=== PATIENT | female | born 1975 | race Caucasian/White ===

== ENCOUNTER 2016-12-14 02:50 | Emergency (ER) | payer OTHER ==
[2016-12-14 03:32] VITALS: BP 123/63
[2016-12-14 03:55] LABS: CHLORIDE,CL 105 mEq/L (98-106); SODIUM,NA 141 mEq/L (136-145)
[2016-12-14] MEDS ORDERED: Take Home: Acetaminophen/HYDROcodone 325-5 MG, 2 Tab Pack PO ONE (04:00)
[2016-12-14] MEDS ORDERED: Acetaminophen/HYDROcodone 325-5 MG Tab PO ONE ×2 (04:00→11:11)
--- NOTE | 2016-12-14 04:07 | EDM.PDOC ---
ED HPI GENERAL MEDICAL PROBLEM - General Chief Complaint: General Stated Complaint: abd pain Time Seen by Provider: 12/14/16 03:10 Source of Information: Reports: Patient - History of Present Illness INITIAL COMMENTS - FREE TEXT/NARRATIVE: Started having right upper abdominal pain radiating to her back a couple of hours ago. Onset: Sudden Duration: Hour(s): Location: Reports: Abdomen Improves with: Reports: None Worsens with: Reports: None Right Upper Abdomen Pain Score (Numeric/FACES): 4 - Related Data Allergies Allergy/AdvReac Type Severity Reaction Status Date / Time aluminum hydroxide Allergy Cannot Verified 12/14/16 03:01 [From Mylanta] Remember aspirin Allergy Cannot Verified 12/14/16 03:01 Remember calcium carbonate Allergy Cannot Verified 12/14/16 03:01 [From Mylanta] Remember magnesium [From Mylanta] Allergy Cannot Verified 12/14/16 03:01 Remember magnesium hydroxide Allergy Cannot Verified 12/14/16 03:01 [From Mylanta] Remember Penicillins Allergy Cannot Verified 12/14/16 03:01 Remember simethicone [From Mylanta] Allergy Cannot Verified 12/14/16 03:01 Remember Home Meds: Home Meds . [No Known Home Meds] 12/14/16 [History] Past Medical History Respiratory History: Reports: Asthma Neurological History: Reports: Head Trauma - Past Surgical History HEENT Surgical History: Reports: Other (See Below) Other HEENT Surgeries/Procedures: CORRECTIVE EYE SURGERY GI Surgical History: Reports: Appendectomy Social & Family History - Family History Family Medical History: Noncontributory - Tobacco Use Smoking Status *Q: Never Smoker Second Hand Smoke Exposure: No ED ROS GENERAL - Review of Systems Review Of Systems: ROS reveals no pertinent complaints other than HPI. ED EXAM, GENERAL - Physical Exam Exam: See Below Exam Limited By: No Limitations General Appearance: Alert, WD/WN Ears: Normal External Exam Nose: Normal Inspection Throat/Mouth: Normal Inspection Head: Atraumatic Neck: Normal Inspection Respiratory/Chest: No Respiratory Distress Cardiovascular: Normal Peripheral Pulses GI/Abdominal: Soft, No Distention, Tender Back Exam: Normal Inspection Extremities: Normal Inspection Neurological: Alert, Oriented Psychiatric: Normal Affect Skin Exam: Warm, Dry Course - Vital Signs Last Recorded V/S: Last Vital Signs Temp 99 F 12/14/16 03:27 Pulse 84 12/14/16 03:27 Resp 18 12/14/16 03:27 BP 123/63 12/14/16 03:27 Pulse Ox 98 12/14/16 03:27 - Orders/Labs/Meds Orders: Active Orders 24 hr Category Date Time Status LIPASE [REF] Stat Lab 12/14/16 03:25 Received Labs: Laboratory Tests 12/14/16 12/14/16 Range/Units 03:25 03:25 WBC 9.9 (5.0-10.0) 10^3/uL RBC 4.21 (4.00-5.50) 10^6/uL Hgb 11.8 L (12.0-16.0) g/dL Hct 35.6 L (37.0-47.0) % MCV 84.6 (82.0-94.0) fL MCH 28.0 (27.0-32.0) pg MCHC 33.1 (33.0-38.0) g/dL RDW Coeff of Renae 13.9 (11.0-15.0) % Plt Count 292 (150-400) 10^3/uL Neut % (Auto) 60.0 (35-85) % Lymph % (Auto) 28.1 (10-55) % [place] % (Auto) 10.8 (0-16) % Eos % (Auto) 0.6 (0-5) % Baso % (Auto) 0.5 (0-3) % Neut # (Auto) 5.95 (1.80-7.00) 10^3/uL Lymph # (Auto) 2.78 (1.00-4.80) 10^3/uL [place] # (Auto) 1.07 H (0.00-0.80) 10^3/uL Eos # (Auto) 0.06 (0.00-0.45) 10^3/uL Baso # (Auto) 0.05 10^3/uL Sodium 141 (136-145) mEq/L Potassium 3.2 L (3.5-5.0) mEq/L Chloride 105 (98-106) mEq/L Carbon Dioxide 27 (21-32) mmol/L BUN 7 (7-18) mg/dL Creatinine 0.9 (0.6-1.0) mg/dL Est Cr Clr Drug Dosing 64.40 mL/min Estimated GFR (MDRD) > 60 (>=60) mL/min Glucose 101 H (75-99) mg/dL Calcium 8.5 (8.4-10.1) mg/dL Total Bilirubin 0.5 (0.0-1.0) mg/dL AST 18 (15-37) U/L ALT 22 (12-78) U/L Alkaline Phosphatase 87 (46-116) U/L Total Protein 7.1 (6.4-8.2) g/dL Albumin 3.1 L (3.4-5.0) g/dL Amylase 36 (25-115) U/L Meds: Medications Discontinued Medications Generic Name Dose Route Start Last Admin Trade Name Freq PRN Reason Stop Dose Admin Hydrocodone Bitart/Acetaminophen 2 packet 12/14/16 04:00 12/14/16 04:07 Take Home: Acetaminophen/Hydrocod, 2 Tab Pack PO 12/14/16 04:01 2 packet ONETIME ONE Administration Hydrocodone Bitart/Acetaminophen 1 tab 12/14/16 04:00 12/14/16 04:07 [place] 325-5 Mg PO 12/14/16 04:01 1 tab ONETIME ONE Administration Departure - Departure Time of Disposition: 04:04 (Lab work is unremarkable. will schedule US of abdomin RUQ to rule out gallbladder disease.) Disposition: Home, Self-Care 01 Condition: Good Clinical Impression: Abdominal pain - Discharge Information Referrals: Provider,Unknown [Primary Care Provider] - Forms: ED Department Discharge Additional Instructions: Take pain medications every 4 hours as needed for pain. Make sure you follow up to have your ultrasound. - My Orders Last 24 Hours: My Active Orders 12/14/16 03:25 LIPASE [REF] Stat - Assessment/Plan Last 24 Hours: My Active Orders 12/14/16 03:25 LIPASE [REF] Stat
== END 2016-12-14 04:15 | disposition home or self-care (01) ==
LOC: CC.ED 02:50
DX: R10.11 Right upper quadrant pain (principal); J45.909 Unspecified asthma, uncomplicated; Z88.8 Allergy status to other drugs, medicaments and biological substances; Z88.0 Allergy status to penicillin; Z98.890 Other specified postprocedural states; Z90.49 Acquired absence of other specified parts of digestive tract
CPT/HCPCS: 36415; 80053; 82150; 83690; 85025; 99284; A9270

== ENCOUNTER 2019-01-10 19:46 | Emergency (ER) | payer MEDICAID, OTHER ==
[2019-01-10] MEDS ORDERED: Ondansetron 4 MG Tab.DIS PO ONE (19:47)
[2019-01-10 19:58] VITALS: BP 101/68; PULSE 65
[2019-01-10] MEDS ORDERED: Ondansetron 4 MG/2 ML SDV IVPUSH PRN (20:31)
--- NOTE | 2019-01-10 20:37 | EDM.PDOC ---
ED HPI GENERAL MEDICAL PROBLEM - General Chief Complaint: Abdominal Pain Stated Complaint: abd pain and vomiting Time Seen by Provider: 01/10/19 20:22 Source of Information: Reports: Patient History Limitations: Reports: No Limitations - History of Present Illness INITIAL COMMENTS - FREE TEXT/NARRATIVE: Patient presents to ER with complaints of nausea, vomiting and abdominal pain. States "feels like salmonella which she has had before". She was feeling good earlier this afternoon. Ate chicken strips, fries and brown gravy for supper around 1630. Started noting increased pain at around 5 and vomited x2 after that. Feels crampy. Did get her menstrual cycle today but has never had symptoms like this with her menses. She denies fever. No cough or shortness of breath. Does feel somewhat dizzy when up. Onset: Today, Sudden Duration: Hour(s):, Constant Location: Reports: Abdomen Quality: Reports: Ache Severity: Severe Improves with: Reports: None Associated Symptoms: Reports: Nausea/Vomiting. Denies: Confusion, Chest Pain, Cough, Fever/Chills, Loss of Appetite, Shortness of Breath Abdominal Pain Score (Numeric/FACES): 10 - Related Data Allergies Allergy/AdvReac Type Severity Reaction Status Date / Time aluminum hydroxide Allergy Cannot Verified 01/10/19 19:59 [From Mylanta] Remember aspirin Allergy Cannot Verified 01/10/19 19:59 Remember calcium carbonate Allergy Cannot Verified 01/10/19 19:59 [From Mylanta] Remember magnesium [From Mylanta] Allergy Cannot Verified 01/10/19 19:59 Remember magnesium hydroxide Allergy Cannot Verified 01/10/19 19:59 [From Mylanta] Remember Penicillins Allergy Cannot Verified 01/10/19 19:59 Remember simethicone [From Mylanta] Allergy Cannot Verified 01/10/19 19:59 Remember Home Meds: Home Meds Albuterol [Proventil HFA] 1 puff IH DAILY PRN 06/10/18 [History] Acetaminophen [Tylenol Extra Strength] 500 mg PO Q6HR PRN 01/10/19 [History] Multivit with Calcium,Iron,Min [One Daily Women's] 1 tab PO DAILY 01/10/19 [ History] Past Medical History HEENT History: Reports: Hard of Hearing, Impaired Vision, Other (See Below) Other HEENT History: left ear deaf Cardiovascular History: Reports: [place] Respiratory History: Reports: Asthma, Other (See Below) Other Respiratory History: hx of collapsed lung Gastrointestinal History: Reports: None Genitourinary History: Reports: STD [employer]EL [employer]W OPERATOR History: Reports: Polycystic Ovaries Musculoskeletal History: Reports: Fracture, Other (See Below) Other Musculoskeletal History: tendinitis Neurological History: Reports: Head Trauma Psychiatric History: Reports: Developmental Delay Endocrine/Metabolic History: Reports: None Hematologic History: Reports: None Immunologic History: Reports: None Oncologic (Cancer) History: Reports: None Dermatologic History: Reports: None - Infectious Disease History Infectious Disease History: Reports: None - Past Surgical History Head Surgeries/Procedures: Reports: None HEENT Surgical History: Reports: Other (See Below) Other HEENT Surgeries/Procedures: CORRECTIVE EYE SURGERY Respiratory Surgical History: Reports: None GI Surgical History: Reports: Appendectomy Female Surgical History: Reports: None Endocrine Surgical History: Reports: None Neurological Surgical History: Reports: None Musculoskeletal Surgical History: Reports: None Social & Family History - Family History Family Medical History: Noncontributory - Tobacco Use Smoking Status *Q: Former Smoker Used Tobacco, but Quit: Yes Month/Year Tobacco Last Used: 25yrs - Caffeine Use Caffeine Use: Reports: Soda, Tea - Recreational Drug Use Recreational Drug Use: No ED ROS GENERAL - Review of Systems Review Of Systems: See Below Constitutional: Denies: Fever, Chills, Malaise, Weakness, Fatigue, Decreased Appetite HEENT: Reports: No Symptoms Respiratory: Denies: Shortness of Breath, Cough Cardiovascular: Denies: Chest Pain, Edema, Lightheadedness Endocrine: Denies: Fatigue GI/Abdominal: Reports: Abdominal Pain, Nausea, Vomiting. Denies: Constipation, Diarrhea : Denies: Dysuria, Frequency, Irregular Menses Musculoskeletal: Reports: No Symptoms Skin: Reports: No Symptoms Neurological: Reports: No Symptoms ED EXAM, GI/ABD - Physical Exam Exam: See Below Exam Limited By: No Limitations General Appearance: Alert, WD/WN, No Apparent Distress Ears: Normal External Exam, Normal TMs Nose: Normal Inspection, Normal Mucosa, No Blood Throat/Mouth: Normal Inspection, Normal Oropharynx Head: Normocephalic Neck: Normal Inspection, Supple, Non-Tender Respiratory/Chest: No Respiratory Distress, Lungs Clear, Normal Breath Sounds Cardiovascular: Regular Rate, Rhythm GI/Abdominal Exam: Normal Bowel Sounds, Soft, Tender (tender diffusely throughout) Neurological: Alert, Oriented Skin Exam: Warm, Dry Course - Vital Signs Last Recorded V/S: Last Vital Signs Temp 97.6 F 01/10/19 19:55 Pulse 65 01/10/19 19:55 Resp 18 01/10/19 19:55 BP 101/68 01/10/19 19:55 Pulse Ox 98 01/10/19 19:55 - Orders/Labs/Meds Orders: Active Orders 24 hr Category Date Time Status Abdomen 2V AP Flat Upright [CR] Stat Exams 01/10/19 20:04 Taken Lactated Ringers [Ringers, Lactated] 1,000 ml Med 01/10/19 20:45 Active IV ASDIRECTED Ondansetron [Zofran] Med 01/10/19 20:31 Active 4 mg IVPUSH Q6H PRN Medication Orders Lactated Ringer's (Ringers, Lactated) 1,000 mls @ 250 mls/hr IV ASDIRECTED JANET Last Admin: 01/10/19 20:36 Dose: 250 mls/hr Ondansetron HCl (Zofran) 4 mg IVPUSH Q6H PRN PRN Reason: Nausea Last Admin: 01/10/19 20:39 Dose: 4 mg Labs: Laboratory Tests 01/10/19 01/10/19 01/10/19 Range/Units 20:04 20:25 20:25 WBC 8.3 (5.0-10.0) 10^3/uL RBC 4.50 (4.00-5.50) 10^6/uL Hgb 13.3 (12.0-16.0) g/dL Hct 39.8 (37.0-47.0) % MCV 88.4 (82.0-94.0) fL MCH 29.6 (27.0-32.0) pg MCHC 33.4 (33.0-38.0) g/dL RDW Coeff of Renae 13.1 (11.0-15.0) % Plt Count 291 (150-400) 10^3/uL Neut % (Auto) 64.3 (35-85) % Lymph % (Auto) 26.1 (10-55) % [place] % (Auto) 6.3 (0-16) % Eos % (Auto) 2.7 (0-5) % Baso % (Auto) 0.6 (0-3) % Neut # (Auto) 5.31 (1.80-7.00) 10^3/uL Lymph # (Auto) 2.15 (1.00-4.80) 10^3/uL [place] # (Auto) 0.52 (0.00-0.80) 10^3/uL Eos # (Auto) 0.22 (0.00-0.45) 10^3/uL Baso # (Auto) 0.05 10^3/uL Sodium 141 (136-145) mEq/L Potassium 3.6 (3.5-5.0) mEq/L Chloride 105 (98-106) mEq/L Carbon Dioxide 28 (21-32) mmol/L BUN 5 L (7-18) mg/dL Creatinine 0.9 (0.6-1.0) mg/dL Est Cr Clr Drug Dosing 63.09 mL/min Estimated GFR (MDRD) > 60 (>=60) mL/min Glucose 116 H (75-99) mg/dL Calcium 9.1 (8.4-10.1) mg/dL Total Bilirubin 0.3 (0.0-1.0) mg/dL AST 14 L (15-37) U/L ALT 17 (12-78) U/L Alkaline Phosphatase 71 (46-116) U/L C-Reactive Protein < 0.2 L (0.2-0.8) mg/dL Total Protein 7.1 (6.4-8.2) g/dL Albumin 3.5 (3.4-5.0) g/dL Lipase 118 (73-393) U/L Urine Color Yellow (YELLOW) Urine Appearance Clear (CLEAR) Urine pH >= 9.0 H (4.5-8.0) Ur Specific [place] 1.020 (1.003-1.020) Urine Protein Negative (NEGATIVE) mg/dL Urine Glucose (UA) Negative (NEGATIVE) mg/dL Urine Ketones Negative (NEGATIVE) mg/dL Urine Occult Blood Negative (NEGATIVE) Urine Nitrite Negative (NEGATIVE) Urine Bilirubin Negative (NEGATIVE) Urine Urobilinogen 0.2 (0.2-1.0) EU/dL Ur Leukocyte Esterase Trace H (NEGATIVE) Urine RBC Not seen (0-5) /HPF Urine WBC 5-10 H (0-5) /HPF Ur Squamous Epith Cells Occasional H (NOT SEEN) /HPF Urine Bacteria Occasional H (NOT SEEN) /HPF Urine Trichomonas Present H (NOT SEEN) /HPF Meds: Medications Generic Name Dose Route Start Last Admin Trade Name Freq PRN Reason Stop Dose Admin Lactated Ringer's 1,000 mls @ 250 mls/hr 01/10/19 20:45 01/10/19 20:36 Ringers, Lactated IV 250 mls/hr ASDIRECTED JANET Administration Ondansetron HCl 4 mg 01/10/19 20:31 01/10/19 20:39 Zofran IVPUSH 4 mg Q6H PRN Administration Nausea - Re-Assessments/Exams Free Text/Narrative Re-Assessment/Exam: 01/10/19 20:58 Labs reviewed with patient and mother. Essentially negative except trichomonas noted in urine. Will discharge with Rx for Flagyl. Zofran for nausea. Departure - Departure Time of Disposition: 21:03 Disposition: Home, Self-Care 01 Condition: Good Clinical Impression: Abdominal pain, Trichomoniasis - Discharge Information *PRESCRIPTION DRUG MONITORING PROGRAM REVIEWED*: No *COPY OF PRESCRIPTION DRUG MONITORING REPORT IN PATIENT DENISSE: No Referrals: Nishant Goel MD [Primary Care Provider] - Forms: ED Department Discharge Additional Instructions: 1. Push fluids 2. [place] diet 3. Rest 4. Zofran 4 mg every 6 hours as needed for nausea 5. Flagyl 500 every 12 hours for 7 days 6. Follow up with Dr. Goel if abdominal pain worsens or develop new concerns. - My Orders Last 24 Hours: My Active Orders 01/10/19 20:04 Abdomen 2V AP Flat Upright [CR] Stat 01/10/19 20:31 Ondansetron [Zofran] 4 mg IVPUSH Q6H PRN 01/10/19 20:45 Lactated Ringers [Ringers, Lactated] 1,000 ml IV ASDIRECTED - Assessment/Plan Last 24 Hours: My Active Orders 01/10/19 20:04 Abdomen 2V AP Flat Upright [CR] Stat 01/10/19 20:31 Ondansetron [Zofran] 4 mg IVPUSH Q6H PRN 01/10/19 20:45 Lactated Ringers [Ringers, Lactated] 1,000 ml IV ASDIRECTED
[2019-01-10] MEDS ORDERED: Lactated Ringers 1,000 ML IV SCH ×2 (20:45→21:36)
[2019-01-10 20:47] LABS: CHLORIDE,CL 105 mEq/L (98-106); SODIUM,NA 141 mEq/L (136-145)
[2019-01-10] MEDS ORDERED: Take Home: Ondansetron 4 MG Tab.DIS, 2 Tab Pack PO ONE (20:59)
== END 2019-01-10 21:37 | disposition home or self-care (01) ==
LOC: CC.ED 19:46
DX: R10.9 Unspecified abdominal pain (principal); A59.9 Trichomoniasis, unspecified; R11.2 Nausea with vomiting, unspecified; I25.2 Old myocardial infarction; Z79.899 Other long term (current) drug therapy; Z88.6 Allergy status to analgesic agent; Z88.0 Allergy status to penicillin; Z88.8 Allergy status to other drugs, medicaments and biological substances; Z87.891 Personal history of nicotine dependence
CPT/HCPCS: 36415; 74019; 80053; 81001; 83690; 85025; 86140; 96361; 96374; 99284; A9270; J2405; J7120

== ENCOUNTER 2020-02-04 23:14 | Emergency (ER) | payer MEDICAID ==
[2020-02-04 23:36] VITALS: BP 101/67; PULSE 72
--- NOTE | 2020-02-04 23:47 | EDM.PDOC ---
ED HPI GENERAL MEDICAL PROBLEM - General Chief Complaint: General Stated Complaint: FALL Time Seen by Provider: 02/04/20 23:45 Source of Information: Reports: Patient History Limitations: Reports: No Limitations - History of Present Illness INITIAL COMMENTS - FREE TEXT/NARRATIVE: Maggie is a 44 yo female who presents to the ED following a fall in her home. She reports she was in an argument with her mother. Reports she was trying to "take 5" then she got up from the chair quickly. Reports the chair had wheels so it spun and she fell to the ground and the chair then landed on her. She reports pain to her left middle finger, her neck, her right chest, and her right foot. ROM and strength intact throughout. Bruising and swelling to left middle finger. She called 911 and was brought in by EMS. She appears in no acute distress. C collar intact upon arrival. Onset: Today, Sudden Location: Reports: Generalized Quality: Reports: Ache Improves with: Reports: None Worsens with: Reports: None Associated Symptoms: Reports: No Other Symptoms. Denies: Confusion, Chest Pain, Headaches, Nausea/Vomiting, Shortness of Breath, Syncope, Weakness - Related Data Allergies Allergy/AdvReac Type Severity Reaction Status Date / Time aluminum hydroxide Allergy Cannot Verified 02/04/20 23:21 [From Mylanta] Remember aspirin Allergy Cannot Verified 02/04/20 23:21 Remember calcium carbonate Allergy Cannot Verified 02/04/20 23:21 [From Mylanta] Remember magnesium [From Mylanta] Allergy Cannot Verified 02/04/20 23:21 Remember magnesium hydroxide Allergy Cannot Verified 02/04/20 23:21 [From Mylanta] Remember Penicillins Allergy Cannot Verified 02/04/20 23:21 Remember simethicone [From Mylanta] Allergy Cannot Verified 02/04/20 23:21 Remember Home Meds: Home Meds Albuterol [Proventil HFA] 1 puff IH DAILY PRN 06/10/18 [History] Acetaminophen [Tylenol Extra Strength] 500 mg PO Q6HR PRN 01/10/19 [History] Multivit with Calcium,Iron,Min [One Daily Women's] 1 tab PO DAILY 01/10/19 [History] Past Medical History HEENT History: Reports: Hard of Hearing, Impaired Vision, Other (See Below) Other HEENT History: left ear deaf Cardiovascular History: Reports: [place] Respiratory History: Reports: Asthma, Other (See Below) Other Respiratory History: hx of collapsed lung Gastrointestinal History: Reports: None Genitourinary History: Reports: STD ED PHYSICIANS History: Reports: Polycystic Ovaries Musculoskeletal History: Reports: Fracture, Other (See Below) Other Musculoskeletal History: tendinitis Neurological History: Reports: Head Trauma Psychiatric History: Reports: Developmental Delay Endocrine/Metabolic History: Reports: None Hematologic History: Reports: None Immunologic History: Reports: None Oncologic (Cancer) History: Reports: None Dermatologic History: Reports: None - Infectious Disease History Infectious Disease History: Reports: None - Past Surgical History Head Surgeries/Procedures: Reports: None HEENT Surgical History: Reports: Other (See Below) Other HEENT Surgeries/Procedures: CORRECTIVE EYE SURGERY Respiratory Surgical History: Reports: None GI Surgical History: Reports: Appendectomy Female Surgical History: Reports: None Endocrine Surgical History: Reports: None Neurological Surgical History: Reports: None Musculoskeletal Surgical History: Reports: None Social & Family History - Family History Family Medical History: Noncontributory - Tobacco Use Smoking Status *Q: Never Smoker Second Hand Smoke Exposure: No - Caffeine Use Caffeine Use: Reports: None ED ROS GENERAL - Review of Systems Review Of Systems: Comprehensive ROS is negative, except as noted in HPI. ED EXAM, GENERAL - Physical Exam Exam: See Below Exam Limited By: No Limitations General Appearance: Alert, WD/WN, No Apparent Distress Eye Exam: Bilateral Eye: EOMI, Normal Fundi, Normal Inspection, PERRL Ears: Normal External Exam, Normal Canal, Hearing Grossly Normal, Normal TMs Nose: Normal Inspection, Normal Mucosa, No Blood Throat/Mouth: Normal Inspection, Normal Lips, Normal Teeth, Normal Gums, Normal Oropharynx, Normal Voice, No Airway Compromise Head: Atraumatic, Normocephalic Neck: Normal Inspection, Supple, Non-Tender, Full Range of Motion. No: Tender Lateral, Tender Midline Respiratory/Chest: No Respiratory Distress, Lungs Clear, Normal Breath Sounds, No Accessory Muscle Use, Chest Non-Tender Cardiovascular: Normal Peripheral Pulses, Regular Rate, Rhythm, No Edema, No Gallop, No JVD, No Murmur, No Rub Peripheral Pulses: 2+: Radial (L), Radial (R), Dorsalis Pedis (L), Dorsalis Pedis (R) GI/Abdominal: Normal Bowel Sounds, Soft, Non-Tender, No Organomegaly, No Dist ention, No Abnormal Bruit, No Mass Back Exam: Normal Inspection, Full Range of Motion, NT Extremities: Normal Inspection, Normal Range of Motion, Non-Tender, No Pedal Edema, Normal Capillary Refill, Other (swelling and bruising noted to left middle finger, ROM intact) Neurological: Alert, Oriented, CN II-XII Intact, Normal Cognition, Normal Gait, Normal Reflexes, No Motor/Sensory Deficits Psychiatric: Normal Affect, Normal Mood Skin Exam: Warm, Dry, Intact, Normal Color, No Rash, Ecchymosis (left middle finger) Course - Vital Signs Last Recorded V/S: Last Vital Signs Temp 98 F 02/04/20 23:29 Pulse 72 02/04/20 23:29 Resp 18 02/04/20 23:29 BP 101/67 02/04/20 23:29 Pulse Ox 100 02/04/20 23:29 - Orders/Labs/Meds Orders: Active Orders 24 hr Category Date Time Status Cervical Spine 2V or 3V [CR] Stat Exams 02/04/20 23:22 Taken Chest 2V [CR] Stat Exams 02/04/20 23:22 Taken Hand 2V Lt [CR] Stat Exams 02/04/20 23:22 Taken - Re-Assessments/Exams Free Text/Narrative Re-Assessment/Exam: Reviewed xrays, all of which appear negative. Discussed these findings with patient. C collar removed. After discussing negative xray results, patient immediately stood up and wanted to leave. I asked patient if she had a ride and she reports no. She attempted to call her mother but was unable to get through to her. She then asked the nursing staff if she could wait in the waiting room. The nurse asked her to go back in ED room and wait for discharge instructions. She continually asked nursing staff to wait in the waiting room, while nurse was finishing up discharging another patient. Patient then went out door and was leaving the building. Nursing staff went outside and asked patient to come back in for d/c instructions. Patient came back inside and discharge instructions reviewed. Patient reports once she got outside she realized where she was at and realized her friend lived on the block. She reports she will be walking to her friends house. Patient in no acute distress. She is alert and oriented. Departure - Departure Time of Disposition: 00:21 Disposition: Home, Self-Care 01 Condition: Good Clinical Impression: Fall Qualifiers: Encounter type: initial encounter Qualified Code(s): W19.XXXA - Unspecified fall, initial encounter Contusion, finger Qualifiers: Encounter type: initial encounter Finger: middle finger Damage to nail status: without damage Laterality: left Qualified Code(s): S60.032A - Contusion of left middle finger without damage to nail, initial encounter - Discharge Information *PRESCRIPTION DRUG MONITORING PROGRAM REVIEWED*: Not Applicable *COPY OF PRESCRIPTION DRUG MONITORING REPORT IN PATIENT DENISSE: Not Applicable Instructions: Contusion, [id number] Referrals: PCP,None [Primary Care Provider] - Forms: ED Department Discharge Additional Instructions: - Ice to areas of discomfort as needed - Tylenol or ibuprofen as needed for pain - Follow up for recheck if pain worsens or does not seem to be improving over the next week Sepsis Event Note (ED) - Evaluation Sepsis Screening Result: No Definite Risk - Problem List & Annotations (1) Fall SNOMED Code(s): 3943604, 448950912 Code(s): W19.XXXA - UNSPECIFIED FALL, INITIAL ENCOUNTER Status: Acute Qualifiers: Encounter type: initial encounter Qualified Code(s): W19.XXXA - Unspecified fall, initial encounter (2) Contusion, finger SNOMED Code(s): 67426483 Code(s): S60.00XA - CONTUSION OF UNSP FINGER WITHOUT DAMAGE TO NAIL, INIT ENCNTR Status: Acute Qualifiers: Encounter type: initial encounter Finger: middle finger Damage to nail status: without damage Laterality: left Qualified Code(s): S60.032A - Contusion of left middle finger without damage to nail, initial encounter - My Orders Last 24 Hours: My Active Orders 02/04/20 23:22 Cervical Spine 2V or 3V [CR] Stat Chest 2V [CR] Stat Hand 2V Lt [CR] Stat - Assessment/Plan Last 24 Hours: My Active Orders 02/04/20 23:22 Cervical Spine 2V or 3V [CR] Stat Chest 2V [CR] Stat Hand 2V Lt [CR] Stat Assessment:: Fall Contusion, left finger Plan: Xrays negative. Instructions as above. Patient discharged per pedis to [facility] house. Was later found walking on road towards [employer]. I did contact nursing staff, who then contacted local PD. Local PD escorted patient to [facility] and then [place] MUELLER gave patient ride to her home in [place].
== END 2020-02-05 00:30 | disposition home or self-care (01) ==
LOC: CC.ED 23:14
DX: S60.032A Contusion of left middle finger without damage to nail, initial encounter (principal); M54.2 Cervicalgia; R07.81 Pleurodynia; M79.671 Pain in right foot; I25.2 Old myocardial infarction; J45.909 Unspecified asthma, uncomplicated; Z91.09 Other allergy status, other than to drugs and biological substances; Z88.5 Allergy status to narcotic agent; Z88.0 Allergy status to penicillin; Z88.8 Allergy status to other drugs, medicaments and biological substances; W07.XXXA Fall from chair, initial encounter; Y92.009 Unspecified place in unspecified non-institutional (private) residence as the place of occurrence of the external cause
CPT/HCPCS: 71046; 72040; 73120-LT; 99284-25

== ENCOUNTER 2020-11-11 01:11 | Emergency (ER) | payer MEDICAID ==
[2020-11-11 01:36] VITALS: BP 119/84; PULSE 63
[2020-11-11] MEDS: Ondansetron 4 MG Tab.DIS PO ONE (01:37)
--- NOTE | 2020-11-11 02:04 | EDM.PDOC ---
ED HPI GENERAL MEDICAL PROBLEM - General Chief Complaint: General Stated Complaint: abd pain Time Seen by Provider: 11/11/20 01:45 Source of Information: Reports: Patient History Limitations: Reports: No Limitations - History of Present Illness INITIAL COMMENTS - FREE TEXT/NARRATIVE: Maggie is a 45 yo female who presents to the ED via EMS with c/o nausea and vomiting starting 1 hour prior to presentation. She reports she was concerned she had food poisoning so she called EMS. She reports she vomited one time and has some lower abdominal cramping. She did receive Zofran prior to my arrival to ED and reports this has helped her. She reports she is feeling better. Reports she was feeling slightly dizzy as well. Does report she is menstruating so is having some abdominal cramping but no other c/o abdominal pain. Denies any urinary symptoms, chest pain, shortness of breath, diarrhea. Location: Reports: Abdomen Quality: Reports: Ache Severity: Moderate Associated Symptoms: Reports: Nausea/Vomiting. Denies: Fever/Chills, Loss of Appetite Lower Abdominal Pain Score (Numeric/FACES): 7 - Related Data Allergies Allergy/AdvReac Type Severity Reaction Status Date / Time aluminum hydroxide Allergy Cannot Verified 11/11/20 01:15 [From Mylanta] Remember aspirin Allergy Cannot Verified 11/11/20 01:15 Remember calcium carbonate Allergy Cannot Verified 11/11/20 01:15 [From Mylanta] Remember magnesium [From Mylanta] Allergy Cannot Verified 11/11/20 01:15 Remember magnesium hydroxide Allergy Cannot Verified 11/11/20 01:15 [From Mylanta] Remember Penicillins Allergy Cannot Verified 11/11/20 01:15 Remember simethicone [From Mylanta] Allergy Cannot Verified 11/11/20 01:15 Remember Home Meds: Home Meds Albuterol [Proventil HFA] 1 puff IH DAILY PRN 06/10/18 [History] Acetaminophen [Tylenol Extra Strength] 500 mg PO Q6HR PRN 01/10/19 [History] Multivit with Calcium,Iron,Min [One Daily Women's] 1 tab PO DAILY 01/10/19 [History] Past Medical History HEENT History: Reports: Hard of Hearing, Impaired Vision, Other (See Below) Other HEENT History: left ear deaf Cardiovascular History: Reports: [place] Respiratory History: Reports: Asthma, Other (See Below) Other Respiratory History: hx of collapsed lung Gastrointestinal History: Reports: None Genitourinary History: Reports: STD [employer] History: Reports: Polycystic Ovaries Musculoskeletal History: Reports: Fracture, Other (See Below) Other Musculoskeletal History: tendinitis Neurological History: Reports: Head Trauma Psychiatric History: Reports: Developmental Delay Endocrine/Metabolic History: Reports: None Hematologic History: Reports: None Immunologic History: Reports: None Oncologic (Cancer) History: Reports: None Dermatologic History: Reports: None - Infectious Disease History Infectious Disease History: Reports: None - Past Surgical History Head Surgeries/Procedures: Reports: None HEENT Surgical History: Reports: Other (See Below) Other HEENT Surgeries/Procedures: CORRECTIVE EYE SURGERY Respiratory Surgical History: Reports: None GI Surgical History: Reports: Appendectomy Female Surgical History: Reports: None Endocrine Surgical History: Reports: None Neurological Surgical History: Reports: None Musculoskeletal Surgical History: Reports: None Social & Family History - Family History Family Medical History: No Pertinent Family History - Caffeine Use Caffeine Use: Reports: None ED ROS GENERAL - Review of Systems Review Of Systems: Comprehensive ROS is negative, except as noted in HPI. ED EXAM, GENERAL - Physical Exam Exam: See Below Exam Limited By: No Limitations General Appearance: Alert, WD/WN, No Apparent Distress Neck: Normal Inspection, Supple, Non-Tender, Full Range of Motion Respiratory/Chest: No Respiratory Distress, Lungs Clear, Normal Breath Sounds, No Accessory Muscle Use, Chest Non-Tender Cardiovascular: Normal Peripheral Pulses, Regular Rate, Rhythm, No Edema, No Gallop, No JVD, No Murmur, No Rub GI/Abdominal: Normal Bowel Sounds, Soft, No Organomegaly, No Distention, No Mass, Pelvis Stable, Tender (diffuse) Back Exam: Normal Inspection, Full Range of Motion. No: CVA Tenderness (L), CVA Tenderness (R) Extremities: Normal Inspection, Normal Range of Motion, Non-Tender, Normal Capillary Refill, No Pedal Edema Neurological: Alert, Oriented, CN II-XII Intact, Normal Cognition, Normal Gait, Normal Reflexes, No Motor/Sensory Deficits Psychiatric: Normal Affect, Normal Mood Skin Exam: Warm, Dry, Intact, Normal Color, No Rash Course - Vital Signs Last Recorded V/S: Last Vital Signs Temp 98 F 11/11/20 01:22 Pulse 63 06/08/21 01:22 Resp 18 11/11/20 01:22 BP 119/84 11/11/20 01:22 Pulse Ox 98 11/11/20 01:22 - Orders/Labs/Meds Labs: Laboratory Tests 11/11/20 11/11/20 11/11/20 Range/Units 01:36 01:36 01:36 WBC 10.2 (4.0-11.0) 10^3/uL RBC 4.58 (4.00-5.50) x10^6/uL Hgb 12.5 (12.0-16.0) g/dL Hct 37.9 (37.0-47.0) % MCV 82.8 L (83.0-97.0) fL MCH 27.3 (27.0-32.0) pg MCHC 33.0 (32.0-36.0) g/dL RDW Coeff of Renae 13.9 (11.0-15.0) % Plt Count 376 (150-400) 10^3/uL Immature Gran % (Auto) 0.2 (0.0-4.9) % Neut % (Auto) 75.7 H (41-71) % Lymph % (Auto) 15.9 L (24-44) % [place] % (Auto) 6.8 (0-10) % Eos % (Auto) 0.9 (0-6) % Baso % (Auto) 0.5 (0-1) % Neut # (Auto) 7.74 (1.80-8.00) x10^3/uL Lymph # (Auto) 1.63 (0.60-5.00) 10^3/uL [place] # (Auto) 0.70 (0.00-1.50) 10^3/uL Eos # (Auto) 0.09 (0.00-1.50) 10^3/uL Baso # (Auto) 0.05 (0.00-0.50) 10^3/uL Immature Gran # (Auto) 0.02 (0.00-0.49) 10^3/uL Sodium 142 (136-145) mEq/L Potassium 3.8 (3.5-5.0) mEq/L Chloride 103 (98-106) mEq/L Carbon Dioxide 28 (21-32) mmol/L BUN 10 D (7-18) mg/dL Creatinine 1.0 (0.6-1.0) mg/dL Est Cr Clr Drug Dosing 55.60 mL/min Estimated GFR (MDRD) 60 (>=60) mL/min Glucose 113 H (75-99) mg/dL Calcium 9.1 (8.4-10.1) mg/dL Total Bilirubin 0.3 (0.0-1.0) mg/dL AST 13 L (15-37) U/L ALT 23 (12-78) U/L Alkaline Phosphatase 82 (46-116) U/L C-Reactive Protein 0.9 H (0.2-0.8) mg/dL Total Protein 7.7 (6.4-8.2) g/dL Albumin 3.6 (3.4-5.0) g/dL Urine Color Yellow (YELLOW) Urine Appearance Slightly cloudy (CLEAR) Urine pH 8.0 (4.5-8.0) Ur Specific [place] 1.020 (1.003-1.020) Urine Protein Negative (NEGATIVE) mg/dL Urine Glucose (UA) Negative (NEGATIVE) mg/dL Urine Ketones Negative (NEGATIVE) mg/dL Urine Occult Blood Trace-intact H (NEGATIVE) Urine Nitrite Negative (NEGATIVE) Urine Bilirubin Negative (NEGATIVE) Urine Urobilinogen 0.2 (0.2-1.0) EU/dL Ur Leukocyte Esterase Negative (NEGATIVE) Urine RBC 5-10 H (0-5) /HPF Urine WBC Not seen (0-5) /HPF Ur Epithelial Cells Few H (NOT SEEN) /HPF Amorphous Sediment Moderate H (NOT SEEN) /HPF Meds: Medications Discontinued Medications Generic Name Dose Route Start Last Admin Trade Name Panfilo PRN Reason Stop Dose Admin Ondansetron HCl 4 mg 11/11/20 01:21 11/11/20 01:37 Ondansetron 4 Mg Tab.Dis PO 11/11/20 01:22 4 mg ONETIME ONE Administration Ondansetron HCl 2 packet 11/11/20 02:00 Take Home: Ondansetron 4 Mg Tab.Dis, 2 Tab Pack PO 11/11/20 02:01 ONETIME ONE Departure - Departure Time of Disposition: 01:59 Disposition: Home, Self-Care 01 Condition: Good Clinical Impression: Viral gastroenteritis - Discharge Information *PRESCRIPTION DRUG MONITORING PROGRAM REVIEWED*: Not Applicable *COPY OF PRESCRIPTION DRUG MONITORING REPORT IN PATIENT DENISSE: Not Applicable Instructions: Viral Gastroenteritis, Adult, [id number] Forms: ED Department Discharge Additional Instructions: - Labs all look good - Rest - Sips of fluids as able - [place] diet until symptoms improve - Zofran 1 tablet every 6 hours as needed for nausea/vomiting - Follow up in clinic for recheck if symptoms worsen or persist - Return to ED for emergent needs Sepsis Event Note (ED) - Evaluation Sepsis Screening Result: No Definite Risk - Focused Exam Vital Signs: Vital Signs Temp Pulse Resp BP Pulse Ox 11/11/20 01:22 98 F 63 18 119/84 98 - Problem List & Annotations (1) Viral gastroenteritis SNOMED Code(s): 417899537 Code(s): A08.4 - VIRAL INTESTINAL INFECTION, UNSPECIFIED Status: Acute - Assessment/Plan Assessment:: Viral Gastroenteritis Plan: As above.
[2020-11-11] MEDS: Take Home: Ondansetron 4 MG Tab.DIS, 2 Tab Pack PO ONE (02:21)
== END 2020-11-11 02:10 | disposition home or self-care (01) ==
LOC: CC.ED 01:11
DX: A08.4 Viral intestinal infection, unspecified (principal); I25.2 Old myocardial infarction; J45.909 Unspecified asthma, uncomplicated; Z88.0 Allergy status to penicillin; Z88.8 Allergy status to other drugs, medicaments and biological substances
CPT/HCPCS: 36415; 80053; 81001; 85025; 86140; 99284; A9270-GY

== ENCOUNTER 2021-08-16 00:47 | Observation (INO) | payer MEDICAID ==
[2021-08-16] MEDS: Ondansetron 4 MG/2 ML SDV IVPUSH ONE ×2 (01:19→06:40)
[2021-08-16] MEDS: Sodium Chloride 0.9% 1,000 ML IV ONE (01:26)
[2021-08-16] MEDS: Famotidine 20 MG/2 ML SDV IVPUSH ONE (01:46)
[2021-08-16 01:59] LABS: CHLORIDE,CL 103 mEq/L (98-106); SODIUM,NA 142 mEq/L (136-145)
[2021-08-16] MEDS: Sodium Chloride 0.9% 1,000 ML IV SCH (03:37)
[2021-08-16] MEDS: diphenhydrAMINE 50 MG/ML SDV IVPUSH ONE (03:38)
[2021-08-16] MEDS ORDERED: Ondansetron 4 MG/2 ML SDV IVPUSH PRN (06:55)
[2021-08-16] MEDS: Acetaminophen 325 MG Tab PO PRN (07:00)
[2021-08-16 08:38] VITALS: BP 112/68; PULSE 88
[2021-08-16] MEDS: Take Home: Ondansetron 4 MG Tab.DIS, 2 Tab Pack PO ONE (10:30)
== END 2021-08-16 10:36 | disposition home or self-care (01) ==
LOC: CC.ED 00:47 → UNDOADMOB 06:40 → CC.MS 06:40 → UNDODISOB 10:36
PROVIDERS: ADMIT Nurse Practitioner Family; ATTEND Family Medicine
DX: K52.9 Noninfective gastroenteritis and colitis, unspecified (principal); J45.909 Unspecified asthma, uncomplicated; H54.7 Unspecified visual loss; I25.2 Old myocardial infarction; H91.92 Unspecified hearing loss, left ear; Z88.8 Allergy status to other drugs, medicaments and biological substances; Z88.1 Allergy status to other antibiotic agents; Z91.048 Other nonmedicinal substance allergy status; Z88.5 Allergy status to narcotic agent; Z98.890 Other specified postprocedural states; Z90.49 Acquired absence of other specified parts of digestive tract; Z79.899 Other long term (current) drug therapy; Z20.822 Contact with and (suspected) exposure to COVID-19
CPT/HCPCS: 36415; 80053; 81001; 82150; 83690; 83735; 84484; 85025; 96374; 96375; 96376; 99236; 99285-25; A9270-GY; G0378; J1200; J2405; J3490; J7030; U0002